=== PATIENT | female | born 2000 | race African-American/Black ===

== ENCOUNTER 2024-04-02 07:33 | Emergency (ER) | payer OTHER ==
[2024-04-02 07:43] VITALS: BP 116/75; PULSE 83; RESP 20; TEMP 97.8; BMI 21.9
[2024-04-02 08:38] LABS: BASO % 0.8 % (0-2.0); EOS % 1.1 % (0-4.5); HEMATOCRIT 29.7 % (32.4-45.2); HEMOGLOBIN 9.2 GM/dL (10.7-15.3); MCH 21.3 pg (25.7-33.7); MCHC 30.9 g/dl (32.0-36.0); MEAN CELL VOLUME 69.1 fl (80-96); MONO % 8.5 % (3.8-10.2); NEUT % 62.6 % (42.8-82.8); PLATELET COUNT 271 10^3/uL (134-434); RBC 4.29 M/mm3 (3.60-5.2); RDW 18.5 % (11.6-15.6); WHITE BLOOD COUNT 6.2 K/mm3 (4.0-10.0)
[2024-04-02 09:00] LABS: ALBUMIN 3.7 g/dl (3.4-5.0); BLOOD UREA NITROGEN 9.7 mg/dL (7-18); POTASSIUM 3.8 mmol/L (3.5-5.1)
[2024-04-02 09:03] LABS: CREATININE 0.8 mg/dL (0.55-1.3)
[2024-04-02 09:04] LABS: BILIRUBIN,TOTAL 0.5 mg/dL (0.2-1)
[2024-04-02 09:05] LABS: TOT PROT 7.3 g/dl (6.4-8.2)
[2024-04-02 09:53] LABS: ANISOCYTOSIS 1+; MACROCYTOSIS 0
[2024-04-02 13:56] LABS: HIV INTERPRETATION NEGATIVE (NEGATIVE)
== END 2024-04-02 09:53 | disposition home or self-care (01) ==
LOC: JER 07:33
DX: R55 Syncope and collapse (principal); D64.9 Anemia, unspecified; R11.0 Nausea; R42 Dizziness and giddiness
CPT/HCPCS: 36415; 80053; 82962; 84703; 85025; 86803; 87389; 93005; 93010; 99284-25